=== PATIENT | male | born 2000 | race Two or more races ===

== ENCOUNTER 2024-04-16 01:58 | Emergency (ER) | payer OTHER ==
[~2024-04-16] VITALS: Ht 172.7 cm; Wt 79.4 kg
[2024-04-16 04:26] VITALS: BP 133/68; TEMP 98.5; O2SAT 98
== END 2024-04-16 04:27 ==
LOC: ER 02:00
DX: S43.401A Unspecified sprain of right shoulder joint, initial encounter (principal); W18.39XA Other fall on same level, initial encounter; Y93.89 Activity, other specified; Y92.89 Other specified places as the place of occurrence of the external cause; Y99.8 Other external cause status
CPT/HCPCS: 73000-TC